=== PATIENT | female | born 1955 | race Caucasian/White ===

== ENCOUNTER 2016-06-26 05:56 | Inpatient (IN) | payer OTHER ==
[2016-06-12 12:55] VITALS: BMI 26.4
[2016-06-26] MEDS ORDERED: ROPIVICAINE 0.2%/MORPH PF/KETOROLAC - 51ML DISP.SYRINGE IA ONE ×2 (06:37→07:21)
[2016-06-26] MEDS ORDERED: GABAPENTIN 300 MG CAPSULE (FP) PO ONE (06:37)
[2016-06-26] MEDS ORDERED: oxyCODONE HCL 10 MG SUSTAINED ACTING TABLET PO ONE (06:37)
[2016-06-26] MEDS ORDERED: CELECOXIB 200 MG CAPSULE PO ONE (06:37)
[2016-06-26] MEDS ORDERED: TRANEXAMIC ACID 1000 MG/10 ML VIAL IVPUSH ONE (06:37)
[2016-06-26] MEDS ORDERED: CEFAZOLIN 1 GM/D5W 50 ML IVPB ONE (06:37)
[2016-06-26] MEDS ORDERED: oxyCODONE HCL 10 MG SUSTAINED ACTING TABLET ONE (06:43)
[2016-06-26] MEDS ORDERED: GABAPENTIN 300 MG CAPSULE (FP) ONE (06:44)
[2016-06-26] MEDS ORDERED: CELECOXIB 200 MG CAPSULE ONE (06:44)
[2016-06-26] MEDS ORDERED: PROPOFOL 20 ML ONE ×2 (07:05)
[2016-06-26] MEDS ORDERED: ePHEDrine SULFATE 50 MG/1 ML AMPULE ONE ×2 (07:05→08:49)
[2016-06-26] MEDS ORDERED: SUCCINYLCHOLINE CHLORIDE 200 MG/10 ML VIAL ONE (07:06)
[2016-06-26] MEDS ORDERED: MIDAZOLAM HCL 2 MG/2 ML SINGLE DOSE VIAL ONE ×2 (07:19→09:54)
[2016-06-26] MEDS ORDERED: BUPIVACAINE HCL/PF 0.5% (5MG/ML) 10 ML VIAL ONE (07:19)
[2016-06-26] MEDS ORDERED: BUPIVACAINE HCL/PF (5 MG/ML) 30 ML VIAL IJ ONE (07:19)
[2016-06-26] MEDS ORDERED: DEXAMETHASONE SOD PHOSPHATE/PF 10 MG/ML SDV ONE (07:19)
[2016-06-26] MEDS ORDERED: TRANEXAMIC ACID 1000 MG/10 ML VIAL ONE (07:20)
[2016-06-26] MEDS ORDERED: ceFAZolin SODIUM 1 GM VIAL ONE (07:20)
[2016-06-26] MEDS ORDERED: VANCOMYCIN 1,000 MG VIAL (RESTRICTED TO ID ONLY) ONE (07:21)
--- NOTE | 2016-06-26 07:44 | HP ---
Admitting History and Physical - Admission Chief Complaint: left hip OA History of Present Illness: 60yo female with left hip pain x several years. Has failed conservative management. Indicated for L HUNTER. History Source: Patient, Medical Record Limitations to Obtaining History: No Limitations - Past Medical History EDGING CATCHER: Yes: Migraine Cardiovascular: Yes: Mitral Insufficiency ...: No Musculoskeletal: Yes: Chronic low back pain, Osteoarthritis - Past Surgical History Past Surgical History: Yes: Arthrosocopy Additional Past Surgical History: breast lumpectomy podiatric surgery - Smoking History Smoking history: Never smoked Have you smoked in the past 12 months: No - Alcohol/Substance Use Hx Alcohol Use: No Home Medications - Allergies Allergies/Adverse Reactions: Allergies Allergy/AdvReac Type Severity Reaction Status Date / Time No Known Drug Allergies Allergy Verified 06/12/16 12:19 - Home Medications Home Medications: Ambulatory Orders Aspirin [ASA -] 81 mg PO DAILY 06/12/16 Cholecalciferol (Vitamin D3) [Vitamin D3] 2,000 unit PO DAILY 06/12/16 Cyanocobalamin (Vitamin B-12) [B-12] 1,000 mcg PO DAILY 06/12/16 Ibuprofen 800 mg PO DAILY PRN 06/12/16 Raloxifene HCl [Evista (Nf) -] 60 mg PO HS 06/12/16 Topiramate [Topamax] 50 mg PO BID 06/12/16 Physical Examination Vital Signs: Vital Signs Temperature 98 F 06/26/16 06:23 Pulse Rate 84 06/26/16 06:23 Respiratory Rate 18 06/26/16 06:23 Blood Pressure 144/86 06/26/16 06:23 O2 Sat by Pulse Oximetry (%) Constitutional: Yes: Well Nourished, No Distress, Calm Eyes: Yes: WNL, Conjunctiva Clear HENT: Yes: WNL, Atraumatic, Normocephalic Neck: Yes: WNL, Supple Cardiovascular: Yes: WNL, Regular Rate and Rhythm Respiratory: Yes: WNL, Regular Gastrointestinal: Yes: WNL, Soft ...Rectal Exam: Yes: Deferred Musculoskeletal: Yes: Joint Stiffness, Joint Swelling Edema: No Peripheral Pulses WNL: Yes Integumentary: Yes: WNL Neurological: Yes: WNL, Alert, Oriented ...Motor Strength: WNL Psychiatric: Yes: WNL, Alert, Oriented Labs: reviewed in chart Imaging - Results X-ray: Image Reviewed Cat Scan: Image Reviewed Problem List - Problems (1) Osteoarthritis of left hip Code(s): M16.12 - UNILATERAL PRIMARY OSTEOARTHRITIS, LEFT HIP Qualifiers: Osteoarthritis type: primary Qualified Code(s): M16.12 - Unilateral primary osteoarthritis, left hip Assessment/Plan 60yo female for L HUNTER
[2016-06-26] MEDS ORDERED: oxyCODONE HCL 5 MG TABLET PO PRN ×2 (09:36)
[2016-06-26] MEDS ORDERED: ACETAMINOPHEN 325 MG TABLET (FP) PO SCH (09:45)
[2016-06-26] MEDS ORDERED: LACTATED RINGERS SOLUTION 1,000 ML IV SCH ×2 (09:45→12:00)
[2016-06-26] MEDS ORDERED: ONDANSETRON 4 MG/2 ML VIAL IVPUSH PRN (10:20)
[2016-06-26] MEDS ORDERED: PROMETHAZINE HCL 25 MG/1 ML VIAL IVPUSH PRN (10:23)
--- NOTE | 2016-06-26 11:52 | OP ---
Operative Note - Note: Operative Date: 06/26/16 Pre-Operative Diagnosis: left hip OA Operation: left HUNTER Post-Operative Diagnosis: Same as Pre-op Surgeon: John Crowe Machinist Linotype: Conchita Michael Anesthesia: Spinal Estimated Blood Loss (mls): 200
[2016-06-26] MEDS ORDERED: MAG HYDROX/AL HYDROX/SIMETH 30 ML UNIT-DOSE CUP PO PRN (11:53)
[2016-06-26] MEDS ORDERED: ONDANSETRON 4 MG/2 ML VIAL IVPB PRN (11:53)
[2016-06-26] MEDS ORDERED: MAGNESIUM HYDROX 2400MG/30ML ORAL SUSPENSION 30 ML CUP PO PRN (11:53)
[2016-06-26] MEDS: traMADol HCL 50 MG TABLET PO SCH ×2 (12:15→17:41)
[2016-06-26] MEDS: KETOROLAC TROMETHAMINE 30 MG/1 ML VIAL IVPUSH SCH ×2 (12:15→17:39)
[2016-06-26] MEDS ORDERED: PANTOPRAZOLE 40 MG TABLET (FP) PO ONE ×2 (13:30→18:00)
[2016-06-26 13:45] LABS: HIV 1 & 2 AB NEGATIVE; HIV 1 AGp24 NEGATIVE
[2016-06-26] MEDS: CEFAZOLIN 1 GM/D5W 50 ML IVPB SCH (17:43)
[2016-06-26] MEDS: ACETAMINOPHEN 325 MG TABLET (FP) PO SCH (17:43)
[2016-06-26] MEDS: oxyCODONE HCL 10 MG SUSTAINED ACTING TABLET PO SCH (21:11)
[2016-06-26] MEDS: TOPIRAMATE 25 MG TABLET (FP) PO SCH (21:12)
[2016-06-26] MEDS: GABAPENTIN 300 MG CAPSULE (FP) PO SCH (21:12)
[2016-06-26] MEDS: ASCORBIC ACID 500 MG TABLET (FP) PO SCH (21:12)
[2016-06-26] MEDS: SENNOSIDES/DOCUSATE COMBO (SENNA PLUS) TABLET (UD) PO SCH (21:12)
[2016-06-26] MEDS: CELECOXIB 200 MG CAPSULE PO SCH (21:12)
[2016-06-26] MEDS ORDERED: GABAPENTIN 300 MG CAPSULE (FP) PO SCH (22:00)
[2016-06-26] MEDS ORDERED: PATIENT'S OWN MEDICATION (NON-FORMULARY) (Raloxifene Hcl 60 MG) PO SCH (22:00)
[2016-06-26] MEDS ORDERED: PATIENT'S OWN MEDICATION (NON-FORMULARY) (Topiramate [Topamax] 50 MG) PO SCH (22:00)
[2016-06-27] MEDS: traMADol HCL 50 MG TABLET PO SCH ×4 (00:48→18:01)
[2016-06-27] MEDS: KETOROLAC TROMETHAMINE 30 MG/1 ML VIAL IVPUSH SCH ×2 (00:48→06:22)
[2016-06-27] MEDS: ACETAMINOPHEN 325 MG TABLET (FP) PO SCH ×4 (00:49→18:02)
[2016-06-27] MEDS: CEFAZOLIN 1 GM/D5W 50 ML IVPB SCH (01:18)
[2016-06-27] MEDS: ASPIRIN 325 MG TABLET PO SCH (08:39)
[2016-06-27 08:50] LABS: MCH 28.7 pg (25.7-33.7); MCHC 34.1 g/dl (32.0-36.0); MEAN CELL VOLUME 84.3 fl (80-96); MEAN PLT VOLUME 9.2 fl (7.5-11.1); PLATELET COUNT 208 K/MM3 (134-434); RDW 13.6 % (11.6-15.6); WHITE BLOOD COUNT 14.6 K/mm3 (4.0-10.8)
[2016-06-27] MEDS: TOPIRAMATE 25 MG TABLET (FP) PO SCH ×2 (09:03→21:12)
[2016-06-27 09:04] LABS: ANION GAP 8 (8-16); CALCIUM 8.7 mg/dl (8.4-10.2); CO2 25 mmol/L (22-28); CREATININE 0.7 mg/dl (0.6-1.3); GLUCOSE,RANDOM 109 mg/dl (74-106)
[2016-06-27] MEDS: ASCORBIC ACID 500 MG TABLET (FP) PO SCH ×2 (09:04→21:12)
[2016-06-27] MEDS: oxyCODONE HCL 10 MG SUSTAINED ACTING TABLET PO SCH ×2 (09:04→21:12)
[2016-06-27] MEDS: CELECOXIB 200 MG CAPSULE PO SCH ×2 (09:04→21:12)
[2016-06-27] MEDS: SENNOSIDES/DOCUSATE COMBO (SENNA PLUS) TABLET (UD) PO SCH ×2 (09:04→21:12)
[2016-06-27] MEDS: GABAPENTIN 300 MG CAPSULE (FP) PO SCH ×2 (09:05→21:12)
[2016-06-27] MEDS ORDERED: MULTIVITAMINS (DAILY MVI) TABLET (FP) PO SCH (10:00)
[2016-06-27] MEDS ORDERED: PANTOPRAZOLE 40 MG TABLET (FP) PO SCH (10:00)
--- NOTE | 2016-06-27 10:07 | PN ---
Progress Note, Physician Chief Complaint: s/p left total hip replacement JHOAN History of Present Illness: under spinal anesthesia with PNB - Current Medication List Current Medications: Active Medications Acetaminophen (Tylenol -) 650 mg PO Q6H [facility] Stop: 06/29/16 18:14 Last Admin: 06/27/16 06:22 Dose: 650 mg Al Hydroxide/Mg Hydroxide (Mylanta Oral Suspension -) 30 ml PO Q4H PRN PRN Reason: DYSPEPSIA Ascorbic Acid (Vitamin C -) 500 mg PO BID [facility] Last Admin: 06/27/16 09:04 Dose: 500 mg Aspirin (Asa -) 325 mg PO DAILY@0800 [facility] Last Admin: 06/27/16 08:39 Dose: 325 mg Celecoxib (Celebrex -) 200 mg PO BID [facility] Last Admin: 06/27/16 09:04 Dose: 200 mg Fentanyl (Sublimaze Injection -) 50 mcg IVPUSH [id number] PRN PRN Reason: PAIN Stop: 06/29/16 09:36 Gabapentin (Neurontin -) 300 mg PO BID [facility] Last Admin: 06/27/16 09:05 Dose: 300 mg Lactated Ringer's (Lactated Ringers Solution) 1,000 mls @ 125 mls/hr IV ASDIR [facility] Magnesium Hydroxide (Milk Of Magnesia -) 30 ml PO PRN PRN PRN Reason: CONSTIPATION Multivitamins/Minerals/Vitamin C (Tab-A-Vit -) 1 tab PO DAILY [facility] Non-Formulary Medication (Raloxifene Hcl) 60 mg PO HS [facility] Ondansetron HCl (Zofran Injection) 4 mg IVPB Q6H PRN PRN Reason: NAUSEA Oxycodone HCl (Oxycontin -) 10 mg PO BID [facility] Stop: 06/29/16 21:59 Last Admin: 06/27/16 09:04 Dose: 10 mg Oxycodone HCl (Roxicodone -) 5 mg PO Q3H PRN PRN Reason: PAIN LEVEL 1-5 Oxycodone HCl (Roxicodone -) 10 mg PO Q3H PRN PRN Reason: PAIN LEVEL 6-10 Pantoprazole Sodium (Protonix -) 40 mg PO DAILY [facility] Senna/Docusate Sodium (Pericolace -) 2 tablet PO BID [facility] Last Admin: 06/27/16 09:04 Dose: 2 tablet Topiramate (Topamax -) 50 mg PO BID [facility] Last Admin: 06/27/16 09:03 Dose: 50 mg Tramadol HCl (Ultram -) 50 mg PO Q6H [facility] Last Admin: 06/27/16 06:21 Dose: 50 mg - Objective Vital Signs: Vital Signs Temperature 97.7 F 06/27/16 06:00 Pulse Rate 90 06/27/16 06:00 Respiratory Rate 17 06/27/16 06:00 Blood Pressure 122/61 06/27/16 06:00 O2 Sat by Pulse Oximetry (%) 97 06/27/16 06:23 Constitutional: Yes: Well Nourished Cardiovascular: Yes: WNL Respiratory: Yes: WNL Gastrointestinal: Yes: WNL Labs: CBC, BMP 06/27/16 08:20 06/27/16 08:20 Assessment/Plan Patient doing well, pain controlled, no nausea vomiting, headache or back pain. Dept of anesthesia will sign off care at this time.
[2016-06-27] MEDS: PANTOPRAZOLE 40 MG TABLET (FP) PO SCH (12:30)
[2016-06-27] MEDS: MULTIVITAMINS (DAILY MVI) TABLET (FP) PO SCH (12:31)
--- NOTE | 2016-06-27 21:07 | PN ---
Progress Note (short form) - Note Progress Note: Pt seen and examined. Comfortable. No complaints. AVSS Selected Entries 06/27/16 06/27/16 06/27/16 06:23 14:37 20:10 Temperature 97.7 F Pulse Rate 79 Respiratory 16 Rate Blood Pressure 110/61 O2 Sat by Pulse 97 93 L Oximetry (%) Oxygen Delivery Room Air Room Air Method Laboratory Tests 06/27/16 06/27/16 08:20 08:20 WBC 14.6 H Hgb 11.0 Hct 32.3 L Plt Count 208 Sodium 141 Potassium 4.5 Chloride 108 H Carbon Dioxide 25 Anion Gap 8 BUN 10 Creatinine 0.7 Random Glucose 109 H Calcium 8.7 Gen: NAD LLE: c/d/i, NVID A/P 60yo female POD#1 s/p L HUNTER 1. PT/OOB - WBAT LLE 2. D/C home tomorrow. Problem List - Problems (1) Osteoarthritis of left hip Code(s): M16.12 - UNILATERAL PRIMARY OSTEOARTHRITIS, LEFT HIP Qualifiers: Osteoarthritis type: primary Qualified Code(s): M16.12 - Unilateral primary osteoarthritis, left hip
[2016-06-28] MEDS: ACETAMINOPHEN 325 MG TABLET (FP) PO SCH ×3 (06:28→13:06)
[2016-06-28 06:29] VITALS: BP 118/79; PULSE 89; TEMP 97.5
[2016-06-28] MEDS: traMADol HCL 50 MG TABLET PO SCH ×3 (06:29→13:03)
[2016-06-28 08:23] LABS: MCHC 33.9 g/dl (32.0-36.0); MEAN CELL VOLUME 85.6 fl (80-96); MEAN PLT VOLUME 9.8 fl (7.5-11.1); PLATELET COUNT 222 K/MM3 (134-434); RDW 13.8 % (11.6-15.6); WHITE BLOOD COUNT 11.1 K/mm3 (4.0-10.8)
[2016-06-28] MEDS: ASPIRIN 325 MG TABLET PO SCH (08:45)
[2016-06-28] MEDS: oxyCODONE HCL 10 MG SUSTAINED ACTING TABLET PO SCH (09:46)
[2016-06-28] MEDS: CELECOXIB 200 MG CAPSULE PO SCH (09:46)
[2016-06-28] MEDS: GABAPENTIN 300 MG CAPSULE (FP) PO SCH (09:47)
[2016-06-28] MEDS: MULTIVITAMINS (DAILY MVI) TABLET (FP) PO SCH (09:47)
[2016-06-28] MEDS: TOPIRAMATE 25 MG TABLET (FP) PO SCH (09:47)
[2016-06-28] MEDS: PANTOPRAZOLE 40 MG TABLET (FP) PO SCH (09:47)
[2016-06-28] MEDS: SENNOSIDES/DOCUSATE COMBO (SENNA PLUS) TABLET (UD) PO SCH (09:48)
[2016-06-28] MEDS: ASCORBIC ACID 500 MG TABLET (FP) PO SCH (09:48)
--- NOTE | 2016-06-28 12:25 | PATH ---
Surgical Pathology Report Patient Name: AVERY NUNES Med. Rec. #: [id number] /Age/Gender: 1955 (Age: 60) / F Account: [id number] Location: [facility] MED-SURG Taken: 06/26/2016 Received: 06/26/2016 Reported: 06/28/2016 Physicians: John Crowe M.D. Specimen(s) Received LEFT FEMORAL HEAD Clinical History Left hip osteoarthritis Final Diagnosis FEMORAL HEAD, LEFT, TOTAL HIP REPLACEMENT: DEGENERATIVE JOINT DISEASE. Electronically Signed Tracy Serrano M.D. Gross Description Received in formalin, labeled "left femoral head," is a 4.2 x 4.2 x 4.0 cm. femoral head with a 1.3 cm in length portion of femoral neck attached. The margin of resection is smooth. No areas of eburnation are identified. The articular surface is zapata-brown and diffusely granular. The underlying trabecular bone is yellow and hard. A practice representative section is submitted in one cassette, following decalcification. 06/27/2016 [facility]06/27/2016
--- NOTE | 2016-07-13 21:07 | SPEC ---
DATE OF OPERATION: 06/26/2016 PREOPERATIVE DIAGNOSIS: Left hip osteoarthritis. POSTOPERATIVE DIAGNOSIS: Left hip osteoarthritis. PROCEDURE: Left total hip replacement with Makoplasty robotic navigation. ATTENDING: Chet Bolton M.D. ANESTHESIA: Spinal plus sedation. ESTIMATED BLOOD LOSS: 200 mL. COMPLICATIONS: None. SPECIMENS: Resected bone was sent for pathology analysis. DISPOSITION: The patient was transferred to the PACU in stable condition. IMPLANTS USED: Du Accolade 2, size 4 femoral component, 50-mm Tritanium acetabular component with 2 acetabular screws and MDM bipolar head ball. INDICATION: This is a 60-year-old female who presented to the office complaining of severe bilateral hip pain. The left was much more symptomatic than the right. She was seen and examined by Dr. Bolton and diagnosed with severe left hip osteoarthritis. The patient was initially treated nonoperatively with medications and physical therapy, but continues to have severe pain and ambulatory dysfunction. She was subsequently indicated for a left total hip replacement with Makoplasty robotic navigation. The risks, benefits and alternatives to the procedure were explained to the patient in great detail and she elected to proceed with the surgery. On the day of surgery, the patient was taken to the operating room and placed on the OR table. Spinal anesthesia was administered by the anesthesiologist. The patient was then positioned in the lateral decubitus position on the table and all bony prominences were padded. An axillary roll was placed. The operative hip was then prepped and draped in the usual sterile fashion and intravenous antibiotics were given for infection prophylaxis. A surgical time-out was then performed with the team and the patients identity, procedure, side, availability of implants and the administration of antibiotics were confirmed. An approximately 15-cm longitudinal incision was made through the skin centered on the greater trochanter of the hip. This dissection was carried down through the subcutaneous tissues to the deep fascia. This fascia was then incised and a Cobra was placed around the inferior femoral neck. Electrocautery was used to reflect the anterior 40% of the gluteus medius and minimus, starting at the musculotendinous junction and leaving a cuff for closure. This was reflected to reveal the capsule of the hip joint. An anterior capsulectomy was performed and the femoral head and neck were visualized. Grade 4 changes were noted diffusely throughout the joint. At this point, three small stab incisions were made superior to the main incision along the iliac crest. Three self-drilling Steinmann pins were then placed and the [employer] pelvic array was attached. Reference points on the limb were then entered into the robotic device and the limb length deficiency, offset and femoral neck resection level were then calculated by the software. The hip was then dislocated with traction and external rotation. An oscillating saw was used to make the femoral neck cut at the level previously templated and the femoral head was removed. Attention was then turned to the acetabulum. Retractors were then placed around the acetabulum and the labrum was removed. An acetabular checkpoint pin and the [employer] software were used to register the contours of the acetabulum. The acetabulum was then reamed in a single stage to the preoperatively templated size using the Naif robotic arm. The appropriately sized cup was then impacted and had solid fixation as well as the preset inclination and version of 40 and 20 degrees, respectively. A polyethylene liner was then placed in the cup. Attention was then turned back to the femur, which was externally rotated for improved visualization. A femoral neck elevator was used to present the femoral neck cut, a box osteotome was used to enter the femoral canal, and a canal finder was used to go down the femoral shaft. The Naif broaches were used sequentially until the optimal scratch fit was achieved. This correlated with the preoperatively templated size. From here, several different offset head and neck configurations were tested until excellent stability and length were obtained. These measurements were quantified using the [employer] software. All trial components were then removed, the femur was copiously irrigated, and the final components were placed. Leg length and stability were checked again and found to be excellent. Irrigation was performed again. Wound closure was started by repairing the abductor muscles with a no. 2 FiberWire stitch in a Krackow configuration, passed through bone tunnels in the greater trochanter and tied over a bony bridge. This repair was then reinforced with a 0 V-Loc 180 barbed suture. Next, no. 1 Polysorb and 0 V-Loc 180 were used to close the fascia. The deep subcutaneous tissue was closed with no. 1 Polysorb sutures and 2-0 Polysorb was used for the superficial subcutaneous tissue. The skin was closed using both 3-0 V-Loc 90 suture in a running subcuticular fashion and SwiftSet skin adhesive. The Naif array and pins were removed from the iliac crest and the stab incision sites were irrigated and closed with 4-0 Polysorb sutures and SwiftSet skin adhesive. Once this was completed, a sterile dressing was applied. The patient was then awakened and taken to the PACU in stable condition. CHET BOLTON M.D. [id number]
== END 2016-06-28 13:16 | disposition home health service (06) | DRG 301 ==
LOC: FM/S 05:56
PROVIDERS: ADMIT Student in an Organized Health Care Education/Training Program; ATTEND Student in an Organized Health Care Education/Training Program
PROC: 8E0W0CZ Robotic Assisted Procedure of Trunk Region, Open Approach (ICD-10-PCS; 2016-06-26)
PROC: 0SRB0JA Replacement of Left Hip Joint with Synthetic Substitute, Uncemented, Open Approach (ICD-10-PCS; principal; 2016-06-26 09:13)
DX: M16.12 Unilateral primary osteoarthritis, left hip (principal); G43.909 Migraine, unspecified, not intractable, without status migrainosus; I34.0 Nonrheumatic mitral (valve) insufficiency; M54.5 Low back pain; E78.5 Hyperlipidemia, unspecified
CPT/HCPCS: 36415; 73502-TC-LT; 80048; 85027; 87389; 88304-TC; 88311-TC; 94010; 94760; 97116-GP; 97162-PG

== ENCOUNTER 2016-09-11 06:35 | Inpatient (IN) | payer OTHER ==
[2016-08-18 11:23] VITALS: BMI 26.2
[~2016-09-11 06:35] MED LIST: PANTOPRAZOLE 40 MG TABLET (FP) PO ONE
[2016-09-11] MEDS ORDERED: ceFAZolin SODIUM 1 GM VIAL ONE ×2 (07:20→09:49)
[2016-09-11] MEDS ORDERED: VANCOMYCIN 1,000 MG VIAL (RESTRICTED TO ID ONLY) ONE (07:20)
[2016-09-11] MEDS ORDERED: ROPIVICAINE 0.2%/MORPH PF/KETOROLAC - 51ML DISP.SYRINGE IA ONE ×2 (07:21→07:31)
[2016-09-11] MEDS ORDERED: TRANEXAMIC ACID 1000 MG/10 ML VIAL IVPUSH ONE (07:31)
[2016-09-11] MEDS ORDERED: CELECOXIB 200 MG CAPSULE PO ONE (07:31)
[2016-09-11] MEDS ORDERED: oxyCODONE HCL 10 MG SUSTAINED ACTING TABLET PO ONE (07:31)
[2016-09-11] MEDS ORDERED: VANCOMYCIN 1,000 MG in DEXTROSE 5%-WATER - 250 ML IVPB ONE (07:31)
[2016-09-11] MEDS ORDERED: CEFAZOLIN 1 GM/D5W 50 ML IVPB ONE (07:31)
[2016-09-11] MEDS ORDERED: GABAPENTIN 300 MG CAPSULE (FP) PO ONE (07:31)
[2016-09-11] MEDS ORDERED: PANTOPRAZOLE 40 MG TABLET (FP) ONE (07:35)
--- NOTE | 2016-09-11 07:36 | HP ---
Admitting History and Physical - Admission Chief Complaint: Right hip osteoarthritis x years History of Present Illness: 60 year old female with longstanding right hip osteoarthritis. Patient complains of pain, limited ROM, difficulty ambulating and difficulty with ADLs. Patient has failed conservative treatment including PO medication, activity modification and exercise program. Patient would like to proceed with a right total hip arthroplasty (MAKOplasty). 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 Cardiovascular: Yes: Mitral Insufficiency Musculoskeletal: Yes: Chronic low back pain, Osteoarthritis - Past Surgical History Past Surgical History: Yes: Arthrosocopy Additional Past Surgical History: See written H&P - Smoking History Smoking history: Never smoked Have you smoked in the past 12 months: No - Alcohol/Substance Use Hx Alcohol Use: No Home Medications - Allergies Allergies/Adverse Reactions: Allergies Allergy/AdvReac Type Severity Reaction Status Date / Time povidone-iodine Allergy Severe Hives Verified 09/11/16 07:17 [From Betadine] soap [From Betadine] Allergy Intermediate Hives Verified 08/18/16 11:08 No Known Drug Allergies Allergy Verified 08/18/16 11:08 - Home Medications Home Medications: Ambulatory Orders Cholecalciferol (Vitamin D3) [Vitamin D3] 2,000 unit PO DAILY 06/12/16 Cyanocobalamin (Vitamin B-12) [B-12] 1,000 mcg PO DAILY 06/12/16 Topiramate [Topamax] 50 mg PO BID 06/12/16 Ascorbic Acid [Vitamin C -] 500 mg PO BID tablet 06/27/16 Aspirin [ASA -] 325 mg PO DAILY@0800 tablet 06/27/16 Celecoxib [CeleBREX -] 200 mg PO BID #60 tab 06/27/16 Multivitamins [Multivit ([facility] Formulary)] 1 tab PO DAILY tab 06/27/16 Oxycodone HCl/Acetaminophen [Percocet 5-325 mg Tablet] 1 - 2 tab PO Q4H PRN #60 tab MDD 10 06/27/16 Pantoprazole Sodium [Protonix -] 40 mg PO DAILY #40 tab 06/27/16 Tramadol HCl [Ultram -] 50 mg PO Q4H PRN #90 tablet MDD 6 06/27/16 Sennosides/Docusate Sodium [Pericolace -] 2 tablet PO BID PRN 08/18/16 Physical Examination Vital Signs: Vital Signs Temperature 97.7 F 09/11/16 07:29 Pulse Rate 74 09/11/16 07:29 Respiratory Rate 16 09/11/16 07:29 Blood Pressure 123/75 09/11/16 07:29 O2 Sat by Pulse Oximetry (%) Constitutional: Yes: Well Nourished, No Distress Eyes: Yes: Conjunctiva Clear HENT: Yes: Atraumatic, Normocephalic Neck: Yes: Supple Cardiovascular: Yes: Regular Rate and Rhythm Respiratory: Yes: Regular Gastrointestinal: Yes: Soft ...Rectal Exam: Yes: Deferred Musculoskeletal: Yes: Joint Stiffness (Right hip) Assessment/Plan 60 year old female with longstanding right hip osteoarthritis. Patient has failed all conservative treatment. Proceed with right total hip arthroplasty ( MAKOplasty).
[2016-09-11] MEDS ORDERED: PROPOFOL 20 ML ONE (07:42)
[2016-09-11] MEDS ORDERED: MIDAZOLAM HCL 2 MG/2 ML SINGLE DOSE VIAL ONE ×2 (07:53→08:31)
[2016-09-11] MEDS ORDERED: ROPIVACAINE HCL 0.5% 30ML VIAL ONE (07:54)
[2016-09-11] MEDS ORDERED: PHENYLEPHRINE HCL 10 MG/1 ML SINGLE DOSE VIAL ONE (09:56)
[2016-09-11] MEDS ORDERED: ePHEDrine SULFATE 50 MG/1 ML AMPULE ONE (10:51)
[2016-09-11] MEDS ORDERED: SENNOSIDES/DOCUSATE COMBO (SENNA PLUS) TABLET (UD) PO PRN (12:39)
--- NOTE | 2016-09-11 12:39 | OP ---
Operative Note - Note: Operative Date: 09/11/16 Pre-Operative Diagnosis: right hip OA Operation: right JHOAN HUNTER Post-Operative Diagnosis: Same as Pre-op Surgeon: John Crowe Real Estate Consultant: Conchita Michael Anesthesia: Spinal Estimated Blood Loss (mls): 200 Operative Report Dictated: Yes
[2016-09-11] MEDS ORDERED: MAG HYDROX/AL HYDROX/SIMETH 30 ML UNIT-DOSE CUP PO PRN (12:40)
[2016-09-11] MEDS: ONDANSETRON 4 MG/2 ML VIAL IVPB PRN ×3 (12:40→18:31)
[2016-09-11] MEDS ORDERED: MAGNESIUM HYDROX 2400MG/30ML ORAL SUSPENSION 30 ML CUP PO PRN (12:40)
[2016-09-11] MEDS ORDERED: LACTATED RINGERS SOLUTION 1,000 ML IV SCH (12:45)
[2016-09-11] MEDS ORDERED: oxyCODONE HCL 5 MG TABLET PO PRN ×2 (12:46)
[2016-09-11] MEDS ORDERED: PROMETHAZINE HCL 25 MG/1 ML VIAL ONE ×2 (13:14→13:40)
[2016-09-11] MEDS ORDERED: ACETAMINOPHEN 1000 MG/100 ML VIAL (NON FORMULARY) IVPB ONE (13:45)
[2016-09-11] MEDS ORDERED: ONDANSETRON 4 MG/2 ML VIAL IVPUSH PRN (13:55)
[2016-09-11] MEDS ORDERED: PROMETHAZINE HCL 25 MG/1 ML VIAL IVPUSH PRN (13:55)
[2016-09-11] MEDS: KETOROLAC TROMETHAMINE 30 MG/1 ML VIAL IVPUSH SCH ×2 (15:29→19:57)
[2016-09-11] MEDS: CEFAZOLIN 1 GM/D5W 50 ML IVPB SCH (18:25)
[2016-09-11] MEDS: ACETAMINOPHEN 325 MG TABLET (FP) PO SCH (19:57)
[2016-09-11] MEDS ORDERED: PATIENT'S OWN MEDICATION (NON-FORMULARY) (Topiramate [Topamax] 50 MG) PO SCH (22:00)
[2016-09-11] MEDS: TOPIRAMATE 25 MG TABLET (FP) PO SCH (22:15)
[2016-09-11] MEDS: ASCORBIC ACID 500 MG TABLET (FP) PO SCH (22:15)
[2016-09-11] MEDS: CELECOXIB 200 MG CAPSULE PO SCH (22:15)
[2016-09-11] MEDS: GABAPENTIN 300 MG CAPSULE (FP) PO SCH (22:15)
[2016-09-11] MEDS: oxyCODONE HCL 10 MG SUSTAINED ACTING TABLET PO SCH (22:15)
[2016-09-12] MEDS: traMADol HCL 50 MG TABLET PO SCH ×5 (00:20→23:53)
[2016-09-12] MEDS: ACETAMINOPHEN 325 MG TABLET (FP) PO SCH ×4 (02:04→20:55)
[2016-09-12] MEDS: KETOROLAC TROMETHAMINE 30 MG/1 ML VIAL IVPUSH SCH ×2 (02:04→08:14)
[2016-09-12] MEDS: CEFAZOLIN 1 GM/D5W 50 ML IVPB SCH (02:51)
[2016-09-12] MEDS: ASPIRIN 325 MG TABLET PO SCH (08:16)
[2016-09-12 08:17] LABS: ANION GAP 1 (8-16); CALCIUM 8.3 mg/dl (8.4-10.2); CO2 26 mmol/L (22-28); CREATININE 0.9 mg/dl (0.6-1.3); GLUCOSE,RANDOM 104 mg/dl (74-106)
[2016-09-12 08:20] LABS: MCH 26.2 pg (25.7-33.7); MCHC 32.7 g/dl (32.0-36.0); MEAN CELL VOLUME 80.1 fl (80-96); MEAN PLT VOLUME 8.9 fl (7.5-11.1); PLATELET COUNT 203 K/MM3 (134-434); RDW 13.5 % (11.6-15.6)
[2016-09-12] MEDS: CELECOXIB 200 MG CAPSULE PO SCH ×2 (09:50→21:39)
[2016-09-12] MEDS: oxyCODONE HCL 10 MG SUSTAINED ACTING TABLET PO SCH ×2 (09:50→21:38)
[2016-09-12] MEDS: PANTOPRAZOLE 40 MG TABLET (FP) PO SCH (09:51)
[2016-09-12] MEDS: MULTIVITAMINS (DAILY MVI) TABLET (FP) PO SCH (09:51)
[2016-09-12] MEDS: GABAPENTIN 300 MG CAPSULE (FP) PO SCH ×2 (09:51→21:39)
[2016-09-12] MEDS: ASCORBIC ACID 500 MG TABLET (FP) PO SCH ×2 (09:51→21:39)
[2016-09-12] MEDS: TOPIRAMATE 25 MG TABLET (FP) PO SCH ×2 (09:51→21:39)
--- NOTE | 2016-09-12 13:58 | SPEC ---
DATE OF OPERATION: 09/11/2016 PREOPERATIVE DIAGNOSIS: Right hip osteoarthritis. POSTOPERATIVE DIAGNOSIS: Right hip osteoarthritis. PROCEDURE: Right total hip replacement with Makoplasty robotic navigation. ATTENDING SURGEON: Chet Bolton MD SOFTWARE DESIGN ANALYST: NABIL Edmonds ANESTHESIA: Spinal plus sedation. ESTIMATED BLOOD LOSS: 200 mL. COMPLICATIONS: None. SPECIMENS: Resected bone was sent for pathology analysis. DISPOSITION: The patient was sent to the PACU in stable condition. IMPLANT USED: Du Accolade II, size 4 femoral component; a Baudette Tritanium 50-mm acetabular component with 25-mm screw; and MDM head ball. INDICATIONS: This is a 60-year-old female who is a longstanding patient of mine who had bilateral hip osteoarthritis. She underwent left total hip replacement 3 months ago and has been doing well with that one. The right hip was also severely arthritic and had been causing her increased pain. We had initially treated her nonoperatively in the office with medications, injections, and physical therapy, but she continued to have severe pain and was indicated for a right total hip replacement with Makoplasty robotic navigation. The risks, benefits, and alternatives to the procedure were explained to the patient in great detail, and she elected to proceed with the surgery. On the day of surgery, the patient was taken to the operating room and placed on the OR table. Spinal anesthesia was administered by the anesthesiologist. The patient was then positioned in the lateral decubitus position on the table and all bony prominences were padded. An axillary roll was placed. The operative hip was then prepped and draped in the usual sterile fashion and intravenous antibiotics were given for infection prophylaxis. A surgical time-out was then performed with the team, and the patients identity, procedure, side, availability of implants, and the administration of antibiotics were confirmed. An approximately 15-cm longitudinal incision was made through the skin centered on the greater trochanter of the hip. This dissection was carried down through the subcutaneous tissues to the deep fascia. This fascia was then incised and a Cobra was placed around the inferior femoral neck. Electrocautery was used to reflect the anterior 40% of the gluteus medius and minimus starting at the musculotendinous junction and leaving a cuff for closure. This was reflected to reveal the capsule of the hip joint. An anterior capsulectomy was performed and the femoral head and neck were visualized. Grade 4 changes were noted diffusely throughout the joint. At this point, three small stab incisions were made superior to the main incision along the iliac crest. Three self-drilling Steinmann pins were then placed and the [employer] pelvic array was attached. Reference points on the limb were then entered into the robotic device and the limb length deficiency, offset, and femoral neck resection level were then calculated by the software. The hip was then dislocated with traction and external rotation. An oscillating saw was used to make the femoral neck cut at the level previously templated, and the femoral head was removed. Attention was then turned to the acetabulum. Retractors were then placed around the acetabulum and the labrum was removed. An acetabular checkpoint pin and the [employer] software were used to register the contours of the acetabulum. The acetabulum was then reamed in a single stage to the preoperatively templated size using the [employer] robotic arm. The appropriately sized cup was then impacted and had solid fixation as well as the preset inclination and version of 40 and 20 degrees, respectively. A polyethylene liner was then placed in the cup. Attention was then turned back to the femur, which was externally rotated for improved visualization. A femoral neck elevator was used to present the femoral neck cut, a box osteotome was used to enter the femoral canal, and a canal finder was used to go down the femoral shaft. The Naif broaches were used sequentially until the optimal scratch fit was achieved. This correlated with the preoperatively templated size. From here, several different offset head and neck configurations were tested until excellent stability and length were obtained. These measurements were quantified using the [employer] software. All trial components were then removed, the femur was copiously irrigated, and the final components were placed. Leg length and stability were checked again and found to be excellent. Irrigation was performed again. Wound closure was started by repairing the abductor muscles with a no. 2 FiberWire stitch in a Krackow configuration passed through bone tunnels in the greater trochanter and tied over a bony bridge. This repair was then reinforced with a 0 V-Loc 180 barbed suture. Next, no. 1 Polysorb and 0 V-Loc 180 were used to close the fascia. The deep subcutaneous tissue was closed with no. 1 Polysorb sutures, and 2-0 Polysorb was used for the superficial subcutaneous tissue. The skin was closed using both 3-0 V-Loc 90 suture in a running subcuticular fashion and SwiftSet skin adhesive. The Naif array and pins were removed from the iliac crest and the stab incision sites were irrigated and closed with 4-0 Polysorb sutures and SwiftSet skin adhesive. Once this was completed, a sterile dressing was applied. The patient was then awakened and taken to the PACU in stable condition. ADDENDUM: After final implants were placed, a 3-minute dilute Betadine lavage was performed according to the [facility] protocol. After this, the wound was thoroughly irrigated with normal saline via pulsatile lavage and wound closure was begun. CHET BOLTON M.D. [id number]
--- NOTE | 2016-09-12 17:47 | PN ---
Progress Note (short form) - Note Progress Note: S: Pt. comfortable in bed. Having dinner. O: VAS 6/10 A/P: POD #1 s/p right total hip replacement 1. Pain 6/10, but "not bad" per patient. encouraged continued pain meds as ordered
[2016-09-13] MEDS: ACETAMINOPHEN 325 MG TABLET (FP) PO SCH ×2 (03:12→09:07)
[2016-09-13] MEDS: traMADol HCL 50 MG TABLET PO SCH (06:50)
[2016-09-13 06:59] VITALS: BP 107/54; PULSE 88; TEMP 97.7
--- NOTE | 2016-09-13 08:23 | PN ---
Progress Note (short form) - Note Progress Note: Pt seen and examined yesterday evening. Doing well. AVSS Selected Entries 09/12/16 09/13/16 09/13/16 22:43 06:58 07:50 Temperature 98.6 F 97.7 F Pulse Rate 89 88 Respiratory 18 16 Rate Blood Pressure 121/62 107/54 O2 Sat by Pulse 94 L 94 L Oximetry (%) Laboratory Tests 09/12/16 09/12/16 07:30 07:30 WBC 7.0 D Hgb 10.4 L D Hct 31.7 L Plt Count 203 Sodium 136 Potassium 3.6 Chloride 109 H Carbon Dioxide 26 Anion Gap 1 L BUN 9 Creatinine 0.9 D Random Glucose 104 Calcium 8.3 L Gen: NAD RLE: c/d/i, NVID A/P 60yo female POD#2 s/p R HUNTER 1. PT/OOB - WBAT RLE 2. D/C home today
[2016-09-13 08:43] LABS: MCH 25.9 pg (25.7-33.7); MCHC 32.3 g/dl (32.0-36.0); MEAN CELL VOLUME 80.3 fl (80-96); MEAN PLT VOLUME 9.4 fl (7.5-11.1); PLATELET COUNT 221 K/MM3 (134-434); RDW 13.5 % (11.6-15.6); WHITE BLOOD COUNT 9.3 K/mm3 (4.0-10.8)
[2016-09-13 09:06] LABS: ANION GAP 4 (8-16); CALCIUM 8.2 mg/dl (8.4-10.2); CO2 23 mmol/L (22-28); CREATININE 0.9 mg/dl (0.6-1.3); GLUCOSE,RANDOM 103 mg/dl (74-106)
[2016-09-13] MEDS: ASPIRIN 325 MG TABLET PO SCH (09:06)
[2016-09-13] MEDS: PANTOPRAZOLE 40 MG TABLET (FP) PO SCH (09:08)
[2016-09-13] MEDS: oxyCODONE HCL 10 MG SUSTAINED ACTING TABLET PO SCH (09:08)
[2016-09-13] MEDS: ASCORBIC ACID 500 MG TABLET (FP) PO SCH (09:09)
[2016-09-13] MEDS: CELECOXIB 200 MG CAPSULE PO SCH (09:09)
[2016-09-13] MEDS: GABAPENTIN 300 MG CAPSULE (FP) PO SCH (09:09)
[2016-09-13] MEDS: TOPIRAMATE 25 MG TABLET (FP) PO SCH (09:09)
[2016-09-13] MEDS: MULTIVITAMINS (DAILY MVI) TABLET (FP) PO SCH (09:09)
--- NOTE | 2016-09-14 15:18 | PATH ---
Surgical Pathology Report Patient Name: AVERY NUNES Med. Rec. #: [id number] /Age/Gender: 1955 (Age: 60) / F Account: [id number] Location: [facility] MED-SURG Taken: 09/11/2016 Received: 09/11/2016 Reported: 09/14/2016 Physicians: John Crowe M.D. Specimen(s) Received RIGHT FEMORAL HEAD Clinical History Right hip osteoarthritis Final Diagnosis BONE, RIGHT FEMORAL HEAD, REPLACEMENT: DEGENERATIVE JOINT DISEASE. Electronically Signed Spencer Toro M.D. Gross Description Received in formalin, labeled "right femoral head," is a 4.0 x 4.0 x 4.0 cm. femoral head with a 0.9 cm in length portion of femoral neck attached. The margin of resection is smooth. No areas of eburnation are identified. The articular surface is zapata-yellow and focally granular with a focal defect. The underlying trabecular bone is yellow and hard. Product Marketing Intern sections are submitted in one cassette, following decalcification. 09/12/2016 [facility]09/12/2016
== END 2016-09-13 12:25 | disposition home health service (06) | DRG 301 ==
LOC: FM/S 06:35
PROVIDERS: ADMIT Student in an Organized Health Care Education/Training Program; ATTEND Student in an Organized Health Care Education/Training Program
PROC: 8E0Y0CZ Robotic Assisted Procedure of Lower Extremity, Open Approach (ICD-10-PCS; 2016-09-11)
PROC: 0SR902A Replacement of Right Hip Joint with Metal on Polyethylene Synthetic Substitute, Uncemented, Open Approach (ICD-10-PCS; principal; 2016-09-11 10:23)
DX: M16.11 Unilateral primary osteoarthritis, right hip (principal); M47.9 Spondylosis, unspecified; I34.0 Nonrheumatic mitral (valve) insufficiency
CPT/HCPCS: 36415; 73502-TC-RT; 80048; 85027; 88304-TC; 88311-TC; 94010; 94760; 97116-GP; 97162-GP